=== PATIENT | male | born 1970 | race Caucasian/White ===

== ENCOUNTER 2022-06-24 10:16 | Emergency (ER) | payer BC, OTHER | END 2022-06-24 11:50 | disposition home or self-care (01) | LOC: DL.ED 10:16 | DX: Z00.00 Encounter for general adult medical examination without abnormal findings (principal); L53.9 Erythematous condition, unspecified; Z79.82 Long term (current) use of aspirin | CPT/HCPCS: 36415; 85379; 99282; 99283 ==

== ENCOUNTER 2022-12-24 08:39 | Emergency (ER) | payer OTHER | END 2022-12-24 09:03 | disposition EXP | LOC: DL.ED 08:39 | DX: I46.9 Cardiac arrest, cause unspecified (principal); I10 Essential (primary) hypertension | CPT/HCPCS: 92950; 96374; 99285-25; 99291 ==